=== PATIENT | male | born 1975 | race Two or more races ===

== ENCOUNTER 2022-12-09 10:26 | Emergency (ER) | payer SELFPAY ==
[~2022-12-09] VITALS: Ht 170.2 cm; Wt 89.0 kg
[2022-12-09 10:48] VITALS: BP 141/97
[2022-12-09] MEDS ORDERED: DexAMETHasone SOD PHOS 10MG/1ML VIAL INJ IM ONE (12:00)
[2022-12-09] MEDS ORDERED: IPRATROPIUM BROM 0.5 MG/2.5ML INH SOL NEB ONE (12:00)
[2022-12-09] MEDS ORDERED: ALBUTEROL SULF 2.5 MG/0.5ML(0.5%) NEB SOLN NEB ONE (12:00)
[2022-12-09] MEDS ORDERED: ALBUTEROL MEDNEB 2.5 mg/3ml NEB ONE (12:16)
[2022-12-09] MEDS ORDERED: LORA-664 PO (16:13)
[2022-12-09] MEDS ORDERED: BENZ100C19 PO (16:13)
[2022-12-09] MEDS ORDERED: ACET-1158 PO (16:13)
[2022-12-09] MEDS ORDERED: IBUP800T26 PO (16:13)
== END 2022-12-09 16:18 | disposition home or self-care (01) ==
LOC: ER 10:26
DX: J06.9 Acute upper respiratory infection, unspecified (principal); B97.89 Other viral agents as the cause of diseases classified elsewhere
CPT/HCPCS: 71046; 93005; 94640; 96372; 99283; J1100; J7644

== ENCOUNTER 2023-07-19 16:33 | Emergency (ER) | payer MEDICAID ==
[~2023-07-19] VITALS: Ht 170.2 cm; Wt 86.3 kg
[~2023-07-19 16:33] MED LIST: ACET500T58 PO; BENZ100C19 PO; IBUP-1455 PO; LORA-1130 PO
[2023-07-19] MEDS ORDERED: HYDROcodone-ACET 10/325MG TAB PO ONE (17:15)
[2023-07-19 17:53] VITALS: BP 149/96; PULSE 100; RESP 18; O2SAT 98
[2023-07-19] MEDS ORDERED: TRAM50TA2 PO (17:57)
== END 2023-07-19 18:23 | disposition home or self-care (01) ==
LOC: ER 16:33
DX: S52.501A Unspecified fracture of the lower end of right radius, initial encounter for closed fracture (principal); S52.612A Displaced fracture of left ulna styloid process, initial encounter for closed fracture; Z79.1 Long term (current) use of non-steroidal anti-inflammatories (NSAID); Z79.899 Other long term (current) drug therapy; V13.4XXA Pedal cycle driver injured in collision with car, pick-up truck or van in traffic accident, initial encounter; Y93.89 Activity, other specified; Y92.410 Unspecified street and highway as the place of occurrence of the external cause; Y99.8 Other external cause status
CPT/HCPCS: 29125; 73110; 73130